=== PATIENT | female | born 1940 | race Caucasian/White ===

== ENCOUNTER → 2016-12-01 | Outpatient (CLI) | payer MEDICARE | LOC: GMAL 10:35 | PROVIDERS: ATTEND Family Medicine | DX: D51.3 Other dietary vitamin B12 deficiency anemia (principal); E03.9 Hypothyroidism, unspecified; E55.9 Vitamin D deficiency, unspecified ==

== ENCOUNTER → 2016-12-22 | Outpatient (CLI) | payer MEDICARE ==
--- NOTE | 2016-12-22 15:59 | MAM ---
EXAM DESCRIPTION: MAMMO BREAST SCREENING BILATERAL CAD, images were reviewed with CAD technology, R2 computer-aided detection. CLINICAL HISTORY: Well [employer]. COMPARISON: 2013. FINDINGS: Routine views are obtained. Glandular tissue is near completely fatty involuted. No dominant mass, architectural distortion or clustered microcalcification.. IMPRESSION: Benign exam. BIRAD CATEGORY: 2 BENIGN RECOMMENDATIONS: FOLLOW-UP: Routine screening mammogram in one year. According to the [employer], yearly mammograms are recommended starting at age 40 and continuing as long as a woman is in good health. Any breast change noted on a breast self-exam should be reported promptly to the patient's healthcare provider. Breast MRI is recommended for women with an approximately 20-25% or greater lifetime risk of breast cancer, including women with a strong family history of breast or ovarian cancer and women who have been treated for Hodgkin's disease. Electronically signed by: Maite Kumar 12/22/2016 15:58
== END ==
LOC: MAMMO 10:47
PROVIDERS: ATTEND Family Medicine
DX: Z12.31 Encounter for screening mammogram for malignant neoplasm of breast (principal)
CPT/HCPCS: 77052; G0202

== ENCOUNTER → 2017-03-15 | Outpatient (CLI) | payer MEDICARE | END | disposition home or self-care (01) | LOC: GMAL 10:07 | PROVIDERS: ATTEND Family Medicine | DX: D51.3 Other dietary vitamin B12 deficiency anemia (principal) ==

== ENCOUNTER → 2017-09-02 | Outpatient (CLI) | payer MEDICARE ==
--- NOTE | 2017-09-04 20:21 | US ---
EXAM DESCRIPTION: Carotid Duplex: Ultrasound CLINICAL HISTORY: OCCLUSION AND STENOSIS OF UNSPECIFIED CAROTID ARTERY COMPARISON: None. TECHNIQUE: Transcutaneous scanning utilizing 2-dimensional and Doppler modes to evaluate the bilateral carotid systems and vertebral arteries. Percentage of diameter of stenosis or no stenosis recorded will be based upon NASCET criteria. FINDINGS: Peak systolic/end diastolic (CM-Sec) CCA Right 79/16 Left 89/20. ICA Right proximal 65/23, mid 58/15. Left proximal 57/14, Distal 50/18. Vertebral Right 27/9 Left 42/10. ECA (PS Only) Right 59 left 96. ICA/CCA peak systolic ratio: Right 0.8 Left 0.6 ICA/CCA end diastolic ratio: Right 1.4 Left 0.7 Vertebral arteries: antegrade flow. Comments: Minimal atherosclerotic calcification in the common carotid bifurcations with spectral broadening bilaterally. IMPRESSION: 1. Doppler evaluation of the bilateral carotid systems and vertebral arteries shows no hemodynamically significant stenoses. 2. No significant amount of plaque seen in the carotid arteries bilaterally. Bilateral vertebral arteries showed antegrade-cephalad flow. Electronically signed by: Anand Newman MD 09/04/2017 8:20 PM CDT
== END | disposition home or self-care (01) ==
LOC: US 10:18
PROVIDERS: ATTEND Family Medicine
DX: I65.29 Occlusion and stenosis of unspecified carotid artery (principal); R09.89 Other specified symptoms and signs involving the circulatory and respiratory systems

== ENCOUNTER → 2018-03-09 | Outpatient (CLI) | payer MEDICARE | LOC: GMAL 10:47 | PROVIDERS: ATTEND Family Medicine | DX: D51.3 Other dietary vitamin B12 deficiency anemia (principal); M25.50 Pain in unspecified joint ==

== ENCOUNTER → 2018-04-26 | Outpatient (CLI) | payer MEDICARE | LOC: GMAL 11:48 | PROVIDERS: ATTEND Family Medicine | DX: M10.9 Gout, unspecified (principal) ==

== ENCOUNTER → 2018-09-13 | Outpatient (CLI) | payer MEDICARE | LOC: GMAL 10:55 | PROVIDERS: ATTEND Family Medicine | DX: M10.9 Gout, unspecified (principal); E55.9 Vitamin D deficiency, unspecified ==

== ENCOUNTER → 2018-09-20 | Outpatient (CLI) | payer MEDICARE | LOC: GMAL 10:37 | PROVIDERS: ATTEND Family Medicine | DX: E03.9 Hypothyroidism, unspecified (principal) ==

== ENCOUNTER 2019-03-25 10:07 | Emergency (ER) | payer MEDICARE ==
[2019-03-25] MEDS ORDERED: LIDOCAINE 1% 10 ML VIAL INJ ONE (10:43)
[2019-03-25] MEDS ORDERED: CHLORHEXIDINE GLUCONATE 4 % 15 ML UD TOP ONE (10:44)
[2019-03-25] MEDS ORDERED: SODIUM CHLORIDE 0.9% (FLUSH) 10 ML SYG IV PRN (11:04)
[2019-03-25] MEDS ORDERED: ONDANSETRON INJ 4 MG/2 ML VIAL IV ONE (11:04)
[2019-03-25] MEDS ORDERED: SODIUM CHLORIDE 0.9% 1000ML 1,000 ML IVS ONE (11:05)
--- NOTE | 2019-03-25 11:21 | ED.PDOC ---
History of Present Illness - General Chief Complaint: Neuro Symptoms/Deficits Stated Complaint: Syncopal epidsode Time Seen by Provider: 03/25/19 10:31 Source: patient, family Exam Limitations: no limitations - History of Present Illness Initial Comments: PT PRESENTS TO THE ED AFTER HAVING A SYNCOPAL EPISODE WHILE IN THE SHOWER. PT REPORTS SHE BEGAN HAVING DIARRHEA BEFORE GETTING IN THE SHOWER. SHE REPORTS FEELING NAUSEOUS AND LIGHTHEADED PRIOR TO PASSING OUT. PT STATES THAT SHE REMEMBERS LOWERING HERSELF TO THE FLOOR OF THE SHOWER CORNER. PTS NOTICED SHE WAS PASSING OUT WHILE IN THE BATHROOM SHAVING. HE REPORTS THAT HER EYES WERE OPEN HOWEVER SHE WAS NOT RESPONDING. HE STATES SHE BEGAN TO RESPOND SHORTLY AFTER HE LAID HER DOWN AND SHE WAS ABLE TO UNLOCK THE PHONE SO HE COULD CALL EMS. PT REPORTS FEELING GENERALLY WEAK AND TIRED. SHE DENIES CHEST PAIN, PALPITATIONS, OR SOB RECENTLY. Timing/Prior Episodes: no prior history Precipitating Factors: lightheadedness, nausea Context: standing Loss of Consciousness: dazed Current Symptoms: back to normal, nausea, weakness Allergies/Adverse Reactions: Allergies NO KNOWN ALLERGY Allergy (Verified 03/25/19 10:36) Home Medications: Ambulatory Orders Dicyclomine HCl [Bentyl] 20 mg PO TID PRN #20 tab 03/25/19 Ondansetron Odt [Zofran ODT] 8 mg PO TID PRN #15 tab 03/25/19 Review of Systems - Review of Systems Constitutional: Denies: chills, fever EENTM: Denies: blurred vision, nose congestion, throat pain Respiratory: Denies: cough, short of breath Cardiology: States: see HPI, syncope. Denies: chest pain, palpitations Gastrointestinal/Abdominal: States: see HPI, diarrhea, nausea. Denies: abdominal pain, vomiting Genitourinary: Denies: dysuria, frequency Musculoskeletal: Denies: joint pain, joint swelling Skin: Denies: dryness, lesions Neurological: States: weakness. Denies: headache, numbness, paresthesia Endocrine: States: no symptoms reported Hematologic/Lymphatic: States: no symptoms reported Past Medical History (General) - Patient Medical History Hx Seizures: No Hx Stroke: No Hx Dementia: No Hx Asthma: No Hx of COPD: No Hx Cardiac Disorders: No Hx Congestive Heart Failure: No Hx Pacemaker: No Hx Hypertension: Yes Hx Thyroid Disease: Yes - hypothyroidism Hx Diabetes: No Hx Gastroesophageal Reflux: No Hx Renal Disease: No Hx of HIV: No Surgical History: Hysterectomy - Vaccination History Hx Influenza Vaccination: Yes - Jul 2018 - Social History Hx Tobacco Use: No Hx Alcohol Use: No Hx Substance Use: No Hx Substance Use Treatment: No Hx Depression: No - Triage Comment ED Triage Comment: Patient states she "passed out" in the shower. States that she felt as if she was going to faint and denies striking her head. States she sat down in the shower but unknown how long +LOC. 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 LABS AND DIAGNOSTICS DISCUSSED. 03/25/19 13:47 PT REMAINS ASYMPTOMATIC, ABLE TO AMBULATE IN THE ED WITHOUT DIFFICULTY OR ASSISTANCE. - Results/Orders Results/Orders: Laboratory Tests 03/25/19 03/25/19 10:55 13:23 WBC 14.6 H RBC 5.01 Hgb 14.7 Hct 43.5 MCV 86.7 MCH 29.2 MCHC 33.7 RDW 13.7 Plt Count 283 MPV 8.1 Absolute Neuts (auto) 12.90 H Absolute Lymphs (auto) 0.70 L Absolute Monos (auto) 0.70 Absolute Eos (auto) 0.20 Absolute Basos (auto) 0.00 Neutrophils % 88.5 H Lymphocytes % 4.5 L Monocytes % 5.1 Eosinophils % 1.6 Basophils % 0.3 PT 10.3 INR 1.03 PTT (SP) 24.3 Sodium 139 Potassium 3.6 Chloride 102 Carbon Dioxide 25 Anion Gap 15.6 BUN 15 Creatinine 0.68 BUN/Creatinine Ratio 22.1 H Random Glucose 124 H Serum Osmolality 279.8 Calcium 9.4 Magnesium 1.8 Creatine Kinase 105 CK-MB (CK-2) 4.0 CK-MB (CK-2) % Not Reportable Troponin I < 0.02 Urine Color Yellow Urine Appearance Clear Urine pH 7.0 Ur Specific [place] 1.015 Urine Protein Negative Urine Glucose (UA) Negative Urine Ketones Negative Urine Blood Trace-intact H Urine Nitrite Negative Urine Bilirubin Negative Urine Urobilinogen 0.2 Ur Leukocyte Esterase Negative Urine RBC 0-1 Urine WBC 0 Ur Epithelial Cells 1-3 Urine Bacteria Rare - EKG/XRAY/CT EKG: Atrial, Sinus - @68BPM, NL INTERVALS, NL AXIS, nonspecific ST T wave Chg - INFERIOR AND LATERAL LEADS, NO OLD EKG FOR COMPARISON XRAY: chest Departure - Departure Clinical Impression: Syncope, Acute gastroenteritis, Volume depletion Time of Disposition: 13:48 Disposition: Discharge to Home or Self Care Condition: Good Departure Forms: ED Discharge - Pt. Copy, Patient Portal Self Enrollment Instructions: DI for Syncope in Adults (Fainting), Viral Gastroenteritis, Adult (DC) Diet: bland diet Activity: increase activity as tolerated Referrals: Harvey Crook III, MD [Primary Care Provider] - 1-5 Days Prescriptions: Dicyclomine HCl [Bentyl] 20 mg PO TID PRN #20 tab PRN Reason: Diarrhea Ondansetron Odt [Zofran ODT] 8 mg PO TID PRN #15 tab PRN Reason: Nausea/Vomiting Home Medications: Ambulatory Orders Dicyclomine HCl [Bentyl] 20 mg PO TID PRN #20 tab 03/25/19 Ondansetron Odt [Zofran ODT] 8 mg PO TID PRN #15 tab 03/25/19
--- NOTE | 2019-03-25 14:35 | RAD ---
EXAM: XR Chest, 1 View CLINICAL HISTORY: 78 years old and is Female; syncope TECHNIQUE: Frontal view of the chest. COMPARISON: No relevant prior studies available. FINDINGS: Limitations: None. Lungs: Unremarkable. No consolidation. Pleural space: Unremarkable. No pneumothorax. Heart: Unremarkable. No cardiomegaly. Mediastinum: Unremarkable. Bones/joints: Unremarkable. IMPRESSION: No acute findings. Electronically signed by: Cathryn Pickard MD 03/25/2019 11:33 AM CDT
[2019-03-25 17:32] VITALS: TEMP 97; O2SAT 92
[2019-03-25 17:35] VITALS: BP 119/81
== END 2019-03-25 14:08 | disposition home or self-care (01) ==
LOC: ER 10:07
DX: R55 Syncope and collapse (principal); K52.9 Noninfective gastroenteritis and colitis, unspecified; E86.9 Volume depletion, unspecified; I10 Essential (primary) hypertension; E03.9 Hypothyroidism, unspecified
CPT/HCPCS: 36415; 71045; 80048; 81001; 82550; 82553; 84484; 85025; 85610; 85730; 93005; J2405; J7030

== ENCOUNTER → 2019-09-18 | Outpatient (CLI) | payer MEDICARE | LOC: GMAL 10:34 | PROVIDERS: ATTEND Family Medicine | DX: E03.9 Hypothyroidism, unspecified (principal); I10 Essential (primary) hypertension; R73.9 Hyperglycemia, unspecified; M10.9 Gout, unspecified; Z79.899 Other long term (current) drug therapy ==

== ENCOUNTER 2019-10-08 05:03 | Day surgery (SDC) | payer MEDICARE ==
[2019-10-08] MEDS ORDERED: MOXIFLOXACIN HCL (OPHTH) 1 DROP DROPS ONE (05:44)
[2019-10-08] MEDS ORDERED: PROPARACAINE 0.5% OPHTH SOL 15 ML BTTL ONE (05:46)
[2019-10-08] MEDS ORDERED: TROP 1%/CYCLOPEN 1%/PHENYL 2% DROPS ONE (05:46)
== END 2019-10-08 07:12 | disposition home or self-care (01) ==
LOC: AMB 05:03
PROVIDERS: ATTEND Ophthalmology
DX: H26.492 Other secondary cataract, left eye (principal); I10 Essential (primary) hypertension; Z79.82 Long term (current) use of aspirin; Z79.899 Other long term (current) drug therapy

== ENCOUNTER → 2020-03-19 | Outpatient (CLI) | payer MEDICARE | LOC: GMAL 11:43 | PROVIDERS: ATTEND Family Medicine | DX: D50.8 Other iron deficiency anemias (principal); I10 Essential (primary) hypertension; Z79.899 Other long term (current) drug therapy ==

== ENCOUNTER → 2020-10-06 | Outpatient (CLI) | payer MEDICARE | LOC: GMAL 14:35 | PROVIDERS: ATTEND Family Medicine | DX: D50.8 Other iron deficiency anemias (principal); E03.9 Hypothyroidism, unspecified; Z79.899 Other long term (current) drug therapy; M10.9 Gout, unspecified ==